=== PATIENT | female | born 1985 | race Caucasian/White ===

== ENCOUNTER 2022-07-04 07:42 | Outpatient (CLI) | payer BC, MEDICAID ==
[2022-07-04 08:21] LABS: BASOPHILS # (AUTO) 0.1 X10'3 (0-0.2); HEMOGLOBIN 13.9 g/dl (12.0-16.0); MONOCYTES # (AUTO) 0.5 X10'3 (0-0.9)
[2022-07-04 08:22] LABS: BASOPHILS % (AUTO) 1.2 % (0-1); EOSINOPHILS # (AUTO) 0.2 X10'3 (0-0.9); EOSINOPHILS % (AUTO) 2.5 % (0-6); HEMATOCRIT 41.5 % (35.0-45.0); LYMPHOCYTES # (AUTO) 2.3 X10'3 (1.1-4.8); LYMPHOCYTES % (AUTO) 27.5 % (21-51); MEAN CORPUSCULAR HGB CONC 33.5 g/dL (33.0-36.5); MEAN CORPUSCULAR VOLUME 86.5 FL (78-98); MEAN PLATELET VOLUME 9.5 FL (7.4-10.4); MONOCYTES % (AUTO) 5.6 % (2-12); NEUTROPHILS # (AUTO) 5.2 X10'3 (1.8-7.7); NEUTROPHILS % (AUTO) 63.2 % (42-75); PLATELET COUNT 433 X10'3 (140-440); RED CELL DISTRIBUTION WIDTH 13.1 % (11.5-14.5); WHITE BLOOD COUNT 8.3 X10'3 (4.5-11.0)
[2022-07-04 08:35] LABS: % IRON SATURATION 25 % (11-46); ALANINE AMINOTRANSFERASE 20 U/L (12-78); ALBUMIN 4.1 G/DL (3.4-5.0); ALBUMIN/GLOBULIN RATIO 1.1 (1.1-1.5); ALKALINE PHOSPHATASE 99 IU/L (46-116); ANION GAP 11 (8-16); ASPARTATE AMINO TRANSFERASE 19 U/L (10-37); BILIRUBIN,TOTAL 0.5 MG/DL (0.1-1.0); BLOOD UREA NITROGEN 8 MG/DL (7-18); BUN/CREATININE RATIO 11.9 (10.0-20.0); CALCIUM 8.8 MG/DL (8.5-10.1); CHLORIDE 103 MMOL/L (99-107); CREATININE 0.67 MG/DL (0.40-0.90); GLUCOSE 91 MG/DL (70-104); IRON 98 UG/DL (49-151); POTASSIUM 3.7 MMOL/L (3.5-5.1); SODIUM 142 MMOL/L (135-145); TOTAL CARBON DIOXIDE 28.5 MMOL/L (24-32); TOTAL IRON BINDING CAPACITY 386 UG/DL (259-388); eGFR > 90 ML/MIN
[2022-07-04 08:37] LABS: HEMOGLOBIN A1C 5.4 % (4.5-6.2)
[2022-07-04 08:44] LABS: CHOL/HDL RATIO 2.8 (0.00-4.99); CHOLESTEROL 183 MG/DL (0-200); HDL CHOLESTEROL 66 MG/DL (35-60); LDL CHOLESTEROL 100 MG/DL (50-100); MAGNESIUM 2.2 MG/DL (1.5-2.4); TRIGLYCERIDES 127 MG/DL (20-135)
== END 2022-07-04 23:59 | disposition home or self-care (01) ==
LOC: LAB 07:42
PROVIDERS: ATTEND Nurse Practitioner Family
DX: E28.2 Polycystic ovarian syndrome (principal); F32.81 Premenstrual dysphoric disorder; K91.2 Postsurgical malabsorption, not elsewhere classified; E03.4 Atrophy of thyroid (acquired); E78.2 Mixed hyperlipidemia; D51.9 Vitamin B12 deficiency anemia, unspecified; E55.9 Vitamin D deficiency, unspecified; Z98.84 Bariatric surgery status
CPT/HCPCS: 80053; 80061; 82306; 82607; 82746; 83036; 83540; 83550; 83735; 84439; 84443; 85025

== ENCOUNTER → 2022-08-08 | Outpatient (CLI) | payer BC, MEDICAID ==
[2022-08-08 08:29] LABS: HEMOGLOBIN A1C 5.3 % (4.5-6.2)
[2022-08-08 08:41] LABS: BASOPHILS # (AUTO) 0.1 X10'3 (0-0.2); HEMOGLOBIN 13.4 g/dl (12.0-16.0); LYMPHOCYTES # (AUTO) 2.3 X10'3 (1.1-4.8); LYMPHOCYTES % (AUTO) 29.2 % (21-51); MONOCYTES # (AUTO) 0.3 X10'3 (0-0.9)
[2022-08-08 08:43] LABS: BASOPHILS % (AUTO) 1.1 % (0-1); EOSINOPHILS # (AUTO) 0.3 X10'3 (0-0.9); EOSINOPHILS % (AUTO) 3.3 % (0-6); HEMATOCRIT 39.7 % (35.0-45.0); MEAN CORPUSCULAR HEMOGLOBIN 29.1 PG (27.0-31.0); MEAN CORPUSCULAR HGB CONC 33.8 g/dL (33.0-36.5); MEAN CORPUSCULAR VOLUME 86.2 FL (78-98); MEAN PLATELET VOLUME 9.9 FL (7.4-10.4); MONOCYTES % (AUTO) 3.6 % (2-12); NEUTROPHILS % (AUTO) 62.8 % (42-75); PLATELET COUNT 422 X10'3 (140-440); RED BLOOD COUNT 4.61 X10'6 (4.20-5.60)
[2022-08-08 08:49] LABS: ALANINE AMINOTRANSFERASE 20 U/L (12-78); ALBUMIN/GLOBULIN RATIO 1.1 (1.1-1.5); ALKALINE PHOSPHATASE 95 IU/L (46-116); ANION GAP 8 (8-16); ASPARTATE AMINO TRANSFERASE 19 U/L (10-37); BILIRUBIN,DIRECT 0.1 MG/DL (0-0.3); BILIRUBIN,TOTAL 0.5 MG/DL (0.1-1.0); BLOOD UREA NITROGEN 10 MG/DL (7-18); BUN/CREATININE RATIO 13.5 (10.0-20.0); CALCIUM 9.4 MG/DL (8.5-10.1); CHLORIDE 104 MMOL/L (99-107); CHOL/HDL RATIO 3.1 (0.00-4.99); CHOLESTEROL 184 MG/DL (0-200); CREATININE 0.74 MG/DL (0.40-0.90); GLUCOSE 89 MG/DL (70-104); HDL CHOLESTEROL 60 MG/DL (35-60); LDL CHOLESTEROL 96 MG/DL (50-100); PHOSPHORUS 3.9 MG/DL (2.3-4.5); SODIUM 141 MMOL/L (135-145); TOTAL CARBON DIOXIDE 29.4 MMOL/L (24-32); TOTAL PROTEIN 7.7 G/DL (6.4-8.2); TRIGLYCERIDES 135 MG/DL (20-135); eGFR 89 ML/MIN
[2022-08-08 09:04] LABS: % IRON SATURATION 20 % (11-46); IRON 77 UG/DL (49-151); TOTAL IRON BINDING CAPACITY 389 UG/DL (259-388)
[2022-08-09 15:08] LABS: C-PEPTIDE, SERUM 2.1 ng/mL (1.1-4.4); THYROXINE (T4) 5.1 ug/dL (4.5-12.0)
== END | disposition home or self-care (01) ==
LOC: LAB 07:43
PROVIDERS: ATTEND Dietitian, Registered
DX: E28.2 Polycystic ovarian syndrome (principal); E88.81 Metabolic syndrome and other insulin resistance; R94.6 Abnormal results of thyroid function studies; D64.9 Anemia, unspecified; K91.2 Postsurgical malabsorption, not elsewhere classified
CPT/HCPCS: 80061; 80069; 80076; 82607; 82746; 83036; 83540; 83550; 84436; 84443; 84681; 85025

== ENCOUNTER 2022-09-22 07:51 | Outpatient (CLI) | payer BC, MEDICAID ==
[2022-09-22 08:55] LABS: BASOPHILS # (AUTO) 0.1 X10'3 (0-0.2); BASOPHILS % (AUTO) 0.7 % (0-1); HEMOGLOBIN 13.7 g/dl (12.0-16.0); MEAN PLATELET VOLUME 9.8 FL (7.4-10.4); MONOCYTES % (AUTO) 3.8 % (2-12); NEUTROPHILS # (AUTO) 6.2 X10'3 (1.8-7.7)
[2022-09-22 08:57] LABS: EOSINOPHILS # (AUTO) 0.2 X10'3 (0-0.9); EOSINOPHILS % (AUTO) 2.6 % (0-6); HEMATOCRIT 41.5 % (35.0-45.0); LYMPHOCYTES # (AUTO) 2.3 X10'3 (1.1-4.8); LYMPHOCYTES % (AUTO) 25.1 % (21-51); MEAN CORPUSCULAR HEMOGLOBIN 28.4 PG (27.0-31.0); MEAN CORPUSCULAR HGB CONC 33.1 g/dL (33.0-36.5); MEAN CORPUSCULAR VOLUME 85.9 FL (78-98); MONOCYTES # (AUTO) 0.3 X10'3 (0-0.9); NEUTROPHILS % (AUTO) 67.8 % (42-75); RED BLOOD COUNT 4.83 X10'6 (4.20-5.60); RED CELL DISTRIBUTION WIDTH 13.5 % (11.5-14.5); WHITE BLOOD COUNT 9.1 X10'3 (4.5-11.0)
[2022-09-23 12:06] LABS: ESTRADIOL 60.4 pg/mL (.); FSH, SERUM 5.6 mIU/mL (.); LUTEINIZING HORMONE 7.3 mIU/mL (.); PROGESTERONE 0.1 ng/mL (.); PROLACTIN 9.3 ng/mL (4.8-23.3); RUBELLA ANTIBODIES, IGG 1.42 index (Immune >0.99)
[2022-09-26 19:45] LABS: ANTI-MULLERIAN HORMONE 5.64 ng/mL (.)
[2022-09-28 09:35] LABS: TESTOSTERONE, FREE, DIRECT 2.1 pg/mL (0.0-4.2)
== END 2022-09-22 23:59 | disposition home or self-care (01) ==
LOC: LAB 07:51
PROVIDERS: ATTEND Physician Assistant
DX: N91.4 Secondary oligomenorrhea (principal)
CPT/HCPCS: 36415; 82397; 82670; 83001; 83002; 84144; 84146; 84402; 84403; 84439; 84443; 85025; 86762

== ENCOUNTER 2022-10-10 08:30 | Outpatient (CLI) | payer BC, MEDICAID ==
[2022-10-11 14:22] LABS: ESTRADIOL 80.3 pg/mL (.); PROGESTERONE <0.1 ng/mL (.)
== END 2022-10-10 23:59 | disposition home or self-care (01) ==
LOC: LAB 08:30
PROVIDERS: ATTEND Physician Assistant
DX: N92.6 Irregular menstruation, unspecified (principal)
CPT/HCPCS: 36415; 82670; 84144

== ENCOUNTER 2023-04-08 07:53 | Outpatient (CLI) | payer BC ==
[2023-04-10 10:24] LABS: PROGESTERONE 27.7 ng/mL (.)
== END 2023-04-08 23:59 | disposition home or self-care (01) ==
LOC: LAB 07:53
PROVIDERS: ATTEND Obstetrics & Gynecology
DX: N91.4 Secondary oligomenorrhea (principal)
CPT/HCPCS: 36415; 82670; 84144

== ENCOUNTER 2023-06-04 08:11 | Outpatient (CLI) | payer BC ==
[2023-06-06 05:51] LABS: PROGESTERONE 12.6 ng/mL (.)
== END 2023-06-04 23:59 | disposition home or self-care (01) ==
LOC: LAB 08:11
PROVIDERS: ATTEND Obstetrics & Gynecology
DX: N91.4 Secondary oligomenorrhea (principal)
CPT/HCPCS: 36415; 82670; 84144

== ENCOUNTER → 2023-09-24 | Outpatient (CLI) | payer BC | END | disposition home or self-care (01) | LOC: LAB 07:50 | PROVIDERS: ATTEND Nurse Practitioner Family | DX: Z32.01 Encounter for pregnancy test, result positive (principal) | CPT/HCPCS: 36415; 84702 ==

== ENCOUNTER 2023-10-06 12:07 | Day surgery (SDC) | payer BC ==
[~2023-10-06] VITALS: Ht 160 cm; Wt 95.0 kg
[2023-10-06 12:22] VITALS: BP 139/83; PULSE 94; RESP 25
[2023-10-06] MEDS ORDERED: fentaNYL/PF 50MCG/1 ML 2ML syringe ONE (12:47)
[2023-10-06] MEDS ORDERED: LIDOcaine 2% Viscous 15ml cup ONE (12:48)
[2023-10-06] MEDS ORDERED: MIDAZolam 1 MG/ML 5ML VIAL ONE (12:48)
[2023-10-06 13:45] VITALS: BP 100/63; PULSE 100; RESP 20; O2SAT 97
[2023-10-06 14:35] VITALS: BP 107/72; PULSE 98; RESP 18; O2SAT 98
[2023-10-06 14:45] VITALS: BP 121/87; PULSE 100; RESP 18; O2SAT 98
[2023-10-06 15:05] VITALS: BP 127/76; PULSE 101; RESP 20; O2SAT 97
== END 2023-10-06 15:10 | disposition home or self-care (01) ==
LOC: GI LAB 12:07
PROVIDERS: ATTEND Internal Medicine Gastroenterology
DX: R12 Heartburn (principal); K21.00 Gastro-esophageal reflux disease with esophagitis, without bleeding; K29.70 Gastritis, unspecified, without bleeding; K31.89 Other diseases of stomach and duodenum
CPT/HCPCS: 43239; 99152; J2250; J3010; J7030; Z7512; A4620

== ENCOUNTER 2023-10-09 07:59 | Outpatient (CLI) | payer BC ==
[2023-10-09 09:00] LABS: BASOPHILS # (AUTO) 0.1 X10'3 (0-0.2); HEMOGLOBIN 13.5 g/dl (12.0-16.0); MONOCYTES # (AUTO) 0.3 X10'3 (0-0.9); NEUTROPHILS # (AUTO) 4.5 X10'3 (1.8-7.7)
[2023-10-09 09:03] LABS: BASOPHILS % (AUTO) 1.5 % (0-1); EOSINOPHILS # (AUTO) 0.2 X10'3 (0-0.9); HEMATOCRIT 41.3 % (35.0-45.0); LYMPHOCYTES # (AUTO) 2.5 X10'3 (1.1-4.8); LYMPHOCYTES % (AUTO) 33.7 % (21-51); MEAN CORPUSCULAR HEMOGLOBIN 27.6 PG (27.0-31.0); MEAN CORPUSCULAR HGB CONC 32.6 g/dL (33.0-36.5); MEAN CORPUSCULAR VOLUME 84.9 FL (78-98); MEAN PLATELET VOLUME 9.7 FL (7.4-10.4); MONOCYTES % (AUTO) 3.3 % (2-12); NEUTROPHILS % (AUTO) 59.5 % (42-75); RED BLOOD COUNT 4.87 X10'6 (4.20-5.60); WHITE BLOOD COUNT 7.6 X10'3 (4.5-11.0)
[2023-10-09 09:11] LABS: ALANINE AMINOTRANSFERASE 29 U/L (12-78); ALBUMIN 4.2 G/DL (3.4-5.0); ALKALINE PHOSPHATASE 91 IU/L (46-116); ANION GAP 9 (8-16); ASPARTATE AMINO TRANSFERASE 16 U/L (10-37); BILIRUBIN,TOTAL 0.6 MG/DL (0.1-1.0); BLOOD UREA NITROGEN 10 MG/DL (7-18); BUN/CREATININE RATIO 13.7 (10.0-20.0); CALCIUM 9.6 MG/DL (8.5-10.1); CHLORIDE 104 MMOL/L (99-107); CREATININE 0.73 MG/DL (0.40-0.90); GLUCOSE 92 MG/DL (70-104); LIPASE 37 U/L (16-77); SODIUM 141 MMOL/L (135-145); TOTAL CARBON DIOXIDE 27.6 MMOL/L (24-32); TOTAL PROTEIN 8.3 G/DL (6.4-8.2); eGFR 90 ML/MIN
[2023-10-09 09:41] LABS: PLATELET COUNT 429 X10'3 (140-440)
== END 2023-10-09 23:59 | disposition home or self-care (01) ==
LOC: RAD 07:59
PROVIDERS: ATTEND Internal Medicine Gastroenterology
DX: K90.0 Celiac disease (principal); K86.81 Exocrine pancreatic insufficiency; R10.9 Unspecified abdominal pain
CPT/HCPCS: 36415; 76700; 80053; 83690; 85025

== ENCOUNTER 2023-11-04 08:13 | Outpatient (CLI) | payer BC ==
[2023-11-04 08:48] LABS: BILIRUBIN,URINE NEGATIVE (Neg); CLARITY,URINE CLEAR (Clear); COLOR,URINE YELLOW (Yellow); GLUCOSE, URINE NEGATIVE (Neg); KETONES,URINE NEGATIVE (Neg); LEUKOCYTE ESTERASE ,URINE SMALL (Neg); NITRITES, URINE NEGATIVE (Neg); OCCULT BLOOD,URINE NEGATIVE (Neg); PROTEIN,URINE NEGATIVE (Neg); UROBILINOGEN,URINE 0.2 E.U/dL (0.2-1.0)
[2023-11-04 08:49] LABS: UA COLLECTION TYPE CLN CATCH MIDSTREAM
[2023-11-04 08:53] LABS: EOSINOPHILS # (AUTO) 0.1 X10'3 (0-0.9); LYMPHOCYTES # (AUTO) 2.5 X10'3 (1.1-4.8); LYMPHOCYTES % (AUTO) 24.4 % (21-51); MONOCYTES # (AUTO) 0.4 X10'3 (0-0.9)
[2023-11-04 08:54] LABS: BASOPHILS # (AUTO) 0.1 X10'3 (0-0.2); BASOPHILS % (AUTO) 1.1 % (0-1); EOSINOPHILS % (AUTO) 1.1 % (0-6); HEMATOCRIT 39.7 % (35.0-45.0); HEMOGLOBIN 12.9 g/dl (12.0-16.0); MEAN CORPUSCULAR HEMOGLOBIN 27.8 PG (27.0-31.0); MEAN CORPUSCULAR HGB CONC 32.4 g/dL (33.0-36.5); MEAN CORPUSCULAR VOLUME 85.7 FL (78-98); MEAN PLATELET VOLUME 9.8 FL (7.4-10.4); MONOCYTES % (AUTO) 3.6 % (2-12); NEUTROPHILS # (AUTO) 7.1 X10'3 (1.8-7.7); NEUTROPHILS % (AUTO) 69.8 % (42-75); PLATELET COUNT 430 X10'3 (140-440); RED BLOOD COUNT 4.64 X10'6 (4.20-5.60); WHITE BLOOD COUNT 10.2 X10'3 (4.5-11.0)
[2023-11-04 08:59] LABS: SQUAMOUS EPITHELIAL CELL,UR MANY /LPF (FEW); TRANSITIONAL EPI CELLS,URINE FEW /HPF
[2023-11-04 09:02] LABS: BACTERIA,URINE 1+ /HPF (Neg)
[2023-11-04 09:03] LABS: RBC,URINE 0-2 /HPF (0-2); WBC,URINE 0-4 /HPF (0-4); YEAST FEW /HPF (NEGATIVE)
[2023-11-04 09:06] LABS: IRON 40 UG/DL (49-151)
[2023-11-04 09:17] LABS: ALANINE AMINOTRANSFERASE 19 U/L (12-78); ALBUMIN 3.7 G/DL (3.4-5.0); ALKALINE PHOSPHATASE 82 IU/L (46-116); ANION GAP 6 (8-16); ASPARTATE AMINO TRANSFERASE 12 U/L (10-37); BILIRUBIN,DIRECT 0.1 MG/DL (0-0.3); BILIRUBIN,TOTAL 0.4 MG/DL (0.1-1.0); BLOOD UREA NITROGEN 8 MG/DL (7-18); CALCIUM 8.7 MG/DL (8.5-10.1); CHLORIDE 104 MMOL/L (99-107); CHOL/HDL RATIO 3.2 (0.00-4.99); CHOLESTEROL 180 MG/DL (0-200); FREE T4 (FREE THYROXINE) 0.67 NG/DL (0.73-1.40); GLUCOSE 90 MG/DL (70-104); HDL CHOLESTEROL 56 MG/DL (35-60); LDL CHOLESTEROL 103 MG/DL (50-100); PHOSPHORUS 3.2 MG/DL (2.3-4.5); POTASSIUM 4.1 MMOL/L (3.5-5.1); SODIUM 137 MMOL/L (135-145); THYROID STIMULATING HORMONE 1.81 ulU/ml (0.34-4.50); TOTAL CARBON DIOXIDE 27.2 MMOL/L (24-32); TOTAL PROTEIN 7.5 G/DL (6.4-8.2); TRIGLYCERIDES 154 MG/DL (20-135)
[2023-11-04 09:20] LABS: HEMOGLOBIN A1C 5.5 % (4.5-6.2)
[2023-11-04 09:45] LABS: BUN/CREATININE RATIO 10.7 (10.0-20.0); CREATININE 0.75 MG/DL (0.40-0.90); eGFR 87 ML/MIN
[2023-11-05 11:10] LABS: FOLATE SERUM(FOLIC) 19.6 ng/mL (>3.0); TESTOSTERONE, SERUM 43 ng/dL (8-60)
[2023-11-05 17:30] LABS: CREATININE, URINE 77.6 mg/dL (Not Estab.); MICROALB/CRT, RATIO <4 mg/g creat (0-29); MICROALBUMIN,U,RANDOM <3.0 ug/mL (Not Estab.)
== END 2023-11-04 23:59 | disposition home or self-care (01) ==
LOC: LAB 08:13
PROVIDERS: ATTEND Dietitian, Registered
DX: K91.2 Postsurgical malabsorption, not elsewhere classified (principal); R94.2 Abnormal results of pulmonary function studies; E11.9 Type 2 diabetes mellitus without complications; E28.2 Polycystic ovarian syndrome; R94.6 Abnormal results of thyroid function studies; E28.9 Ovarian dysfunction, unspecified
CPT/HCPCS: 36415; 80061; 80069; 80076; 81001; 82043; 82570; 82607; 82746; 83036; 83540; 84402; 84403; 84439; 84443; 85025

== ENCOUNTER 2024-01-04 09:01 | Day surgery (SDC) | payer BC ==
[~2024-01-04] VITALS: Ht 160 cm; Wt 96.3 kg
[~2024-01-04 09:01] MED LIST: CYAN10007 IM; LEVO25TA7 PO; MAGN400C PO; PANT40TA54 PO; PHEN37.58 PO; RIZA10TA98; [UNRECOGNIZED DRUG - CODE] PO
[2024-01-04 09:58] VITALS: BP 113/79; PULSE 93; RESP 18
[2024-01-04] MEDS ORDERED: simethicone 40mg/0.6ml oral drops 30ml ONE (10:37)
[2024-01-04] MEDS ORDERED: propofol inj 20 ML IV ONE ×2 (10:42)
[2024-01-04 11:03] VITALS: BP 80/55; PULSE 80; RESP 19; O2SAT 97
[2024-01-04 11:13] VITALS: BP 99/49; PULSE 82; RESP 19; O2SAT 97
[2024-01-04 11:23] VITALS: BP 109/55; PULSE 77; RESP 20; O2SAT 97
[2024-01-04 11:33] VITALS: BP 112/60; PULSE 80; RESP 17; O2SAT 98
== END 2024-01-04 11:42 | disposition home or self-care (01) ==
LOC: GI LAB 09:01
PROVIDERS: ATTEND Internal Medicine Gastroenterology
DX: R19.4 Change in bowel habit (principal)
CPT/HCPCS: 45378; J2704; J7030; Z7512; 45330; 99152; A4618; A4620

== ENCOUNTER 2024-01-05 11:08 | Day surgery (SDC) | payer BC ==
[~2024-01-05] VITALS: Ht 160 cm; Wt 95.0 kg
[~2024-01-05 11:08] MED LIST changes: -CYAN10007 IM; -MAGN400C PO; -PANT40TA54 PO; -PHEN37.58 PO; -RIZA10TA98; -[UNRECOGNIZED DRUG - CODE] PO
[2024-01-05 14:15] VITALS: BP 134/63; PULSE 88; RESP 20
[2024-01-05] MEDS ORDERED: glucagon, human recombinant 1mg kit ONE (14:56)
[2024-01-05] MEDS ORDERED: simethicone 40mg/0.6ml oral drops 30ml ONE (15:00)
[2024-01-05] MEDS ORDERED: midazolam 1 mg/ML 2ml injection ONE (15:20)
[2024-01-05 15:50] VITALS: BP 126/62; PULSE 89; RESP 16; O2SAT 98
[2024-01-05 16:00] VITALS: BP 118/73; PULSE 102; RESP 20; O2SAT 96
[2024-01-05 16:10] VITALS: BP 121/73; PULSE 88; RESP 21; O2SAT 96
[2024-01-05 16:20] VITALS: BP 120/71; PULSE 81; RESP 19; O2SAT 97
[2024-01-05] MEDS ORDERED: LIDOcaine 2% (20mg/ml) 5ml vial ONE (16:50)
[2024-01-05] MEDS ORDERED: propofol inj 20 ML IV ONE (16:50)
== END 2024-01-05 16:32 | disposition home or self-care (01) ==
LOC: OR 11:08
PROVIDERS: ATTEND Internal Medicine Gastroenterology
DX: R19.4 Change in bowel habit (principal); E03.9 Hypothyroidism, unspecified; E66.9 Obesity, unspecified; G43.909 Migraine, unspecified, not intractable, without status migrainosus; Z79.890 Hormone replacement therapy; Z90.89 Acquired absence of other organs; Z98.818 Other dental procedure status; Z98.84 Bariatric surgery status; Z98.890 Other specified postprocedural states; Z68.37 Body mass index [BMI] 37.0-37.9, adult; Z88.0 Allergy status to penicillin; Z88.2 Allergy status to sulfonamides
CPT/HCPCS: 45380; 99152; A4618; A4620; J1610; J2250; J2704; J3490; J7030

== ENCOUNTER 2024-01-20 09:14 | Outpatient (CLI) | payer BC ==
[2024-01-20 10:24] LABS: ALANINE AMINOTRANSFERASE 20 U/L (12-78); ALBUMIN 3.8 G/DL (3.4-5.0); ALKALINE PHOSPHATASE 101 IU/L (46-116); ANION GAP 7 (8-16); ASPARTATE AMINO TRANSFERASE 12 U/L (10-37); BILIRUBIN,TOTAL 0.4 MG/DL (0.1-1.0); BLOOD UREA NITROGEN 10 MG/DL (7-18); BUN/CREATININE RATIO 13.7 (10.0-20.0); C-REACTIVE PROTEIN 0.55 MG/DL (0.0-0.5); CALCIUM 8.9 MG/DL (8.5-10.1); CHLORIDE 103 MMOL/L (99-107); CREATININE 0.73 MG/DL (0.40-0.90); GLUCOSE 77 MG/DL (70-104); POTASSIUM 3.9 MMOL/L (3.5-5.1); SODIUM 139 MMOL/L (135-145); TOTAL CARBON DIOXIDE 28.7 MMOL/L (24-32); TOTAL PROTEIN 7.8 G/DL (6.4-8.2); eGFR 90 ML/MIN
[2024-01-20 10:40] LABS: BASOPHILS # (AUTO) 0.1 X10'3 (0-0.2); EOSINOPHILS # (AUTO) 0.1 X10'3 (0-0.9); EOSINOPHILS % (AUTO) 1.4 % (0-6); HEMOGLOBIN 12.8 g/dl (12.0-16.0); MEAN CORPUSCULAR HGB CONC 32.9 g/dL (33.0-36.5); MONOCYTES # (AUTO) 0.4 X10'3 (0-0.9)
[2024-01-20 10:43] LABS: LYMPHOCYTES # (AUTO) 2.5 X10'3 (1.1-4.8); LYMPHOCYTES % (AUTO) 30.1 % (21-51); MEAN CORPUSCULAR HEMOGLOBIN 27.9 PG (27.0-31.0); MEAN CORPUSCULAR VOLUME 84.9 FL (78-98); MEAN PLATELET VOLUME 9.2 FL (7.4-10.4); MONOCYTES % (AUTO) 5.2 % (2-12); NEUTROPHILS # (AUTO) 5.2 X10'3 (1.8-7.7); NEUTROPHILS % (AUTO) 62.3 % (42-75); PLATELET COUNT 472 X10'3 (140-440); RED BLOOD COUNT 4.59 X10'6 (4.20-5.60); WHITE BLOOD COUNT 8.4 X10'3 (4.5-11.0)
[2024-01-21 11:14] LABS: ANTINUCLEAR ANTIBODIES Positive (Negative)
== END 2024-01-20 23:59 | disposition home or self-care (01) ==
LOC: RAD 09:14
PROVIDERS: ATTEND Dietitian, Registered
DX: D89.89 Other specified disorders involving the immune mechanism, not elsewhere classified (principal); Z82.0 Family history of epilepsy and other diseases of the nervous system; M79.10 Myalgia, unspecified site; K91.2 Postsurgical malabsorption, not elsewhere classified; Z86.19 Personal history of other infectious and parasitic diseases; E11.8 Type 2 diabetes mellitus with unspecified complications; E28.2 Polycystic ovarian syndrome; E78.2 Mixed hyperlipidemia; M24.9 Joint derangement, unspecified; M25.551 Pain in right hip; M79.671 Pain in right foot; R20.0 Anesthesia of skin
CPT/HCPCS: 36415; 80053; 84681; 85025; 85651; 86038; 86140; 86431

== ENCOUNTER 2024-02-23 08:07 | Outpatient (CLI) | payer BC ==
[2024-02-23 08:49] LABS: HEMOGLOBIN A1C 5.5 % (4.5-6.2)
[2024-02-23 09:01] LABS: ALANINE AMINOTRANSFERASE 15 U/L (12-78); ALBUMIN 3.9 G/DL (3.4-5.0); ALKALINE PHOSPHATASE 94 IU/L (46-116); ANION GAP 10 (8-16); ASPARTATE AMINO TRANSFERASE 11 U/L (10-37); BILIRUBIN,DIRECT 0.1 MG/DL (0-0.3); BILIRUBIN,TOTAL 0.6 MG/DL (0.1-1.0); BLOOD UREA NITROGEN 9 MG/DL (7-18); BUN/CREATININE RATIO 11.3 (10.0-20.0); CALCIUM 8.7 MG/DL (8.5-10.1); CHLORIDE 102 MMOL/L (99-107); CHOL/HDL RATIO 2.9 (0.00-4.99); CHOLESTEROL 181 MG/DL (0-200); FREE T4 (FREE THYROXINE) 0.98 NG/DL (0.73-1.40); GLUCOSE 91 MG/DL (70-104); HDL CHOLESTEROL 62 MG/DL (35-60); LDL CHOLESTEROL 100 MG/DL (50-100); PHOSPHORUS 3.2 MG/DL (2.3-4.5); POTASSIUM 3.8 MMOL/L (3.5-5.1); SODIUM 141 MMOL/L (135-145); THYROID STIMULATING HORMONE 0.93 ulU/ml (0.34-4.50); TOTAL CARBON DIOXIDE 29.1 MMOL/L (24-32); TRIGLYCERIDES 104 MG/DL (20-135); eGFR 81 ML/MIN
[2024-02-23 10:35] LABS: % IRON SATURATION 19 % (11-46); IRON 77 UG/DL (49-151); TOTAL IRON BINDING CAPACITY 400 UG/DL (259-388)
[2024-02-24 13:14] LABS: CREATININE, URINE 205.6 mg/dL (Not Estab.); MICROALBUMIN,U,RANDOM 10.6 ug/mL (Not Estab.); THIIODOTHRONINE, FREE, SERUM 2.8 pg/mL (2.0-4.4)
[2024-02-25 05:18] LABS: C-PEPTIDE, SERUM 2.6 ng/mL (1.1-4.4); FOLATE SERUM(FOLIC) 19.7 ng/mL (>3.0)
== END 2024-02-23 23:59 | disposition home or self-care (01) ==
LOC: LAB 08:07
PROVIDERS: ATTEND Dietitian, Registered
DX: E11.8 Type 2 diabetes mellitus with unspecified complications (principal); E78.2 Mixed hyperlipidemia; D89.89 Other specified disorders involving the immune mechanism, not elsewhere classified; R94.6 Abnormal results of thyroid function studies; E55.9 Vitamin D deficiency, unspecified; K58.2 Mixed irritable bowel syndrome; K91.2 Postsurgical malabsorption, not elsewhere classified; E28.2 Polycystic ovarian syndrome
CPT/HCPCS: 36415; 80061; 80069; 80076; 82043; 82306; 82570; 82607; 82746; 83036; 83540; 83550; 84439; 84443; 84481; 84681

== ENCOUNTER 2024-03-10 08:41 | Outpatient (CLI) | payer BC | END 2024-03-10 23:59 | disposition home or self-care (01) | LOC: LAB 08:41 | PROVIDERS: ATTEND Dietitian, Registered | DX: R76.8 Other specified abnormal immunological findings in serum (principal); E03.9 Hypothyroidism, unspecified; E53.8 Deficiency of other specified B group vitamins | CPT/HCPCS: 36415; 81479; 83891; 83892; 83894; 83898 ==

== ENCOUNTER 2024-06-02 14:01 | Emergency (ER) | payer BC ==
[~2024-06-02] VITALS: Ht 160 cm; Wt 96.1 kg
[2024-06-02 14:05] VITALS: TEMP 97.7
[2024-06-02] MEDS: predniSONE 20 mg tablet PO ONE (15:34)
[2024-06-02] MEDS ORDERED: PRED50TA PO (15:44)
[2024-06-02] MEDS ORDERED: ALBU8HFA INH (15:44)
[2024-06-02] MEDS: ipratropium/albuterol 3ml nebule NEB ONE (15:55)
[2024-06-02 15:56] VITALS: PULSE 93; RESP 18; O2SAT 100
[2024-06-02 16:04] VITALS: PULSE 85; RESP 18; O2SAT 99
[2024-06-02 16:25] VITALS: BP 141/82; PULSE 96; RESP 18; O2SAT 97
== END 2024-06-02 16:35 | disposition home or self-care (01) ==
LOC: ER 14:02
DX: J22 Unspecified acute lower respiratory infection (principal); Z88.0 Allergy status to penicillin; Z88.2 Allergy status to sulfonamides; Z79.899 Other long term (current) drug therapy
CPT/HCPCS: 71045; 93005; 94640; 99283; J7512; 94760

== ENCOUNTER 2024-06-28 10:37 | Outpatient (CLI) | payer BC ==
[~2024-06-28 10:37] MED LIST changes: +ALBU8HFA INH; +PRED50TA PO
[2024-06-28 11:29] LABS: BASOPHILS # (AUTO) 0.1 X10'3 (0-0.2); EOSINOPHILS # (AUTO) 0.1 X10'3 (0-0.9); HEMATOCRIT 38.9 % (35.0-45.0); HEMOGLOBIN 12.8 g/dl (12.0-16.0); LYMPHOCYTES # (AUTO) 2.5 X10'3 (1.1-4.8); NEUTROPHILS # (AUTO) 5.9 X10'3 (1.8-7.7); NEUTROPHILS % (AUTO) 66.1 % (42-75); RED CELL DISTRIBUTION WIDTH 14.7 % (11.5-14.5)
[2024-06-28 11:31] LABS: BASOPHILS % (AUTO) 0.6 % (0-1); EOSINOPHILS % (AUTO) 1.5 % (0-6); LYMPHOCYTES % (AUTO) 28.1 % (21-51); MEAN CORPUSCULAR HEMOGLOBIN 28.2 PG (27.0-31.0); MEAN CORPUSCULAR HGB CONC 32.8 g/dL (33.0-36.5); MEAN PLATELET VOLUME 9.8 FL (7.4-10.4); MONOCYTES # (AUTO) 0.3 X10'3 (0-0.9); MONOCYTES % (AUTO) 3.7 % (2-12); RED BLOOD COUNT 4.53 X10'6 (4.20-5.60)
[2024-06-28 11:47] LABS: ALANINE AMINOTRANSFERASE 21 U/L (12-78); ALBUMIN 3.7 G/DL (3.4-5.0); ALBUMIN/GLOBULIN RATIO 0.9 (1.1-1.5); ALKALINE PHOSPHATASE 85 IU/L (46-116); ASPARTATE AMINO TRANSFERASE 11 U/L (10-37); BLOOD UREA NITROGEN 10 MG/DL (7-18); BUN/CREATININE RATIO 14.7 (10.0-20.0); CALCIUM 8.7 MG/DL (8.5-10.1); CHLORIDE 105 MMOL/L (99-107); CREATININE 0.68 MG/DL (0.40-0.90); GLUCOSE 79 MG/DL (70-104); POTASSIUM 3.8 MMOL/L (3.5-5.1); TOTAL CARBON DIOXIDE 26.5 MMOL/L (24-32); TOTAL PROTEIN 7.8 G/DL (6.4-8.2); eGFR > 90 ML/MIN
[2024-06-28 11:54] LABS: BILIRUBIN,DIRECT 0.1 MG/DL (0-0.3); CHOL/HDL RATIO 3.2 (0.00-4.99); CHOLESTEROL 194 MG/DL (0-200); HDL CHOLESTEROL 60 MG/DL (35-60); LDL CHOLESTEROL 112 MG/DL (50-100); PHOSPHORUS 3.8 MG/DL (2.3-4.5); THYROID STIMULATING HORMONE 0.77 ulU/ml (0.34-4.50); TRIGLYCERIDES 89 MG/DL (20-135)
[2024-06-28 11:56] LABS: % IRON SATURATION 22 % (11-46); IRON 89 UG/DL (49-151); TOTAL IRON BINDING CAPACITY 400 UG/DL (259-388)
[2024-06-28 12:03] LABS: ANION GAP 7 (8-16); BILIRUBIN,TOTAL 0.6 MG/DL (0.1-1.0); HEMOGLOBIN A1C 5.6 % (4.5-6.2); SODIUM 138 MMOL/L (135-145)
[2024-06-29 13:12] LABS: THIIODOTHRONINE, FREE, SERUM 2.6 pg/mL (2.0-4.4); VITAMIN D, 25-HYDROXY 34.9 ng/mL (30.0-100.0)
== END 2024-06-28 23:59 | disposition home or self-care (01) ==
LOC: LAB 10:37
PROVIDERS: ATTEND Internal Medicine Endocrinology, Diabetes & Metabolism
DX: K91.2 Postsurgical malabsorption, not elsewhere classified (principal); E11.8 Type 2 diabetes mellitus with unspecified complications; E28.2 Polycystic ovarian syndrome; E03.9 Hypothyroidism, unspecified; R76.8 Other specified abnormal immunological findings in serum; E78.2 Mixed hyperlipidemia
CPT/HCPCS: 80061; 80069; 80076; 82306; 82607; 82746; 83036; 83540; 83550; 84439; 84443; 84481; 85025

== ENCOUNTER 2024-10-26 07:44 | Outpatient (CLI) | payer BC ==
[~2024-10-26 07:44] MED LIST changes: -ALBU8HFA INH
[2024-10-26 08:59] LABS: CHOL/HDL RATIO 3.5 (0.00-4.99); CREATININE 0.78 MG/DL (0.40-0.90); LDL CHOLESTEROL 126 MG/DL (50-100); PHOSPHORUS 4.1 MG/DL (2.3-4.5); TOTAL CARBON DIOXIDE 30.1 MMOL/L (24-32); eGFR 83 ML/MIN
[2024-10-26 09:42] LABS: % IRON SATURATION 19 % (11-46)
[2024-10-27 11:27] LABS: C-PEPTIDE, SERUM 3.3 ng/mL (1.1-4.4); FOLATE SERUM(FOLIC) >20.0 ng/mL (>3.0)
[2024-10-27 13:39] LABS: THIIODOTHRONINE, FREE, SERUM 3.0 pg/mL (2.0-4.4)
== END 2024-10-26 23:59 | disposition home or self-care (01) ==
LOC: LAB 07:44
PROVIDERS: ATTEND Dietitian, Registered
DX: E11.8 Type 2 diabetes mellitus with unspecified complications (principal); E78.2 Mixed hyperlipidemia; E03.9 Hypothyroidism, unspecified; D51.1 Vitamin B12 deficiency anemia due to selective vitamin B12 malabsorption with proteinuria; K91.2 Postsurgical malabsorption, not elsewhere classified
CPT/HCPCS: 36415; 80061; 80069; 80076; 82043; 82306; 82570; 82607; 82746; 83036; 83540; 83550; 84439; 84443; 84481; 84681

== ENCOUNTER 2024-11-16 08:40 | Outpatient (CLI) | payer BC | END 2024-11-16 23:59 | disposition home or self-care (01) | LOC: RAD 08:40 | PROVIDERS: ATTEND Dietitian, Registered | DX: N91.2 Amenorrhea, unspecified (principal) | CPT/HCPCS: 36415; 82627; 82670; 83001; 83002; 84144; 84146; 84702 ==

== ENCOUNTER 2025-03-22 08:20 | Outpatient (CLI) | payer BC ==
[2025-03-22 08:49] LABS: MEAN PLATELET VOLUME 10.2 FL (7.4-10.4); RED CELL DISTRIBUTION WIDTH 14.9 % (11.5-14.5)
== END 2025-03-22 23:59 | disposition home or self-care (01) ==
LOC: RAD 08:20
PROVIDERS: ATTEND Obstetrics & Gynecology
DX: N91.1 Secondary amenorrhea (principal)
CPT/HCPCS: 36415; 84144; 84702; 85025; 86885; 86900; 86901

== ENCOUNTER 2025-03-24 08:54 | Outpatient (CLI) | payer BC ==
[2025-03-24 09:47] LABS: HCG SERUM QL POSITIVE
== END 2025-03-24 23:59 | disposition home or self-care (01) ==
LOC: RAD 08:54
PROVIDERS: ATTEND Obstetrics & Gynecology
DX: N91.1 Secondary amenorrhea (principal)
CPT/HCPCS: 36415; 84702; 84703; 86900; 86901

== ENCOUNTER 2025-03-27 09:26 | Outpatient (CLI) | payer BC | END 2025-03-27 23:59 | disposition home or self-care (01) | LOC: RAD 09:26 | PROVIDERS: ATTEND Obstetrics & Gynecology | DX: N91.1 Secondary amenorrhea (principal) | CPT/HCPCS: 36415; 84702 ==

== ENCOUNTER 2025-03-29 09:13 | Outpatient (CLI) | payer BC ==
[2025-03-29 10:16] LABS: CREATININE 0.74 MG/DL (0.40-0.90); TOTAL CARBON DIOXIDE 26.5 MMOL/L (24-32); eGFR 88 ML/MIN
== END 2025-03-29 23:59 | disposition home or self-care (01) ==
LOC: LAB 09:13
PROVIDERS: ATTEND Obstetrics & Gynecology
DX: O00.80 Other ectopic pregnancy without intrauterine pregnancy (principal); Z3A.00 Weeks of gestation of pregnancy not specified
CPT/HCPCS: 36415; 80053; 84439; 84443; 84702